=== PATIENT | female | born 1970 | race Caucasian/White ===

== ENCOUNTER 2020-05-15 12:52 | Emergency (ER) | payer OTHER ==
[~2020-05-15 12:52] MED LIST: AMOXICILLIN875 MG PO; MUCUS RELIEF D1 EACH PO
[2020-05-15 14:45] LABS: BASOPHIL 0.3 % (0-2); EOSINOPHIL 0.8 % (0-5); HCT 43.9 % (37.0-47.0); HGB 13.8 g/dl (12.5-16.0); LYMPHOCYTE 27.6 % (15-48); MCH 29.4 pg (25.0-31.0); MCHC 31.4 g/dL (32.0-36.0); MCV 93.6 fL (78.0-100.0); MONOCYTE 9.3 % (0-12); MPV 9.5 fL (6.0-9.5); NEUTROPHIL 61.7 % (41-80); NRBC 0; PLT 221 K/uL (150-400); RBC 4.69 M/uL (4.20-5.40); RDW 14.1 % (11.5-14.0); WBC 3.6 K/uL (4.0-10.5)
[2020-05-15 14:46] LABS: BILIRUBIN NEGATIVE (NEGATIVE); BLOOD NEGATIVE Ery/uL (NEGATIVE); CLARITY CLEAR (CLEAR); COLOR YELLOW (YELLOW); GLUCOSE (U) NORMAL (NORMAL); LEUKOCYTES NEGATIVE Leu/uL (NEGATIVE); NITRITE NEGATIVE (NEGATIVE); PROTEIN NEGATIVE (NEGATIVE); SPECIFIC GRAVITY <=1.005 (1.001-1.030); UROBILINOGEN 0.2 mg/dL (0.2-1.0)
[2020-05-15 15:03] LABS: ALBUMIN 3.6 g/dL (3.4-5.0); BILIRUBIN - TOTAL 0.3 mg/dL (0.2-1.0); BUN/CREAT RATIO (CALC) 11.1 RATIO; CREATININE 0.72 mg/dL (0.51-0.95); GLOBULIN (CALCULATION) 4.2 g/dL; POTASSIUM 3.9 mmol/L (3.5-5.1); TOTAL PROTEIN 7.8 g/dL (6.4-8.2)
== END 2020-05-15 17:28 | disposition home or self-care (01) ==
LOC: FER 12:52
PROVIDERS: Nurse Practitioner Family
DX: B34.9 Viral infection, unspecified (principal); R07.1 Chest pain on breathing
CPT/HCPCS: 36415; 71046; 80053; 81003; 85025